=== PATIENT | female | born 1975 | race Caucasian/White ===

== ENCOUNTER → 2025-03-06 14:17 | Outpatient (BNVA) | payer MEDICARE, SELFPAY | PROVIDERS: Referring Provider Preventive Medicine Occupational Medicine; Visit Provider Nurse Practitioner Adult Health | DX: M54.2 Cervicalgia (principal); G89.29 Other chronic pain; M79.601 Pain in right arm; M79.602 Pain in left arm | CPT/HCPCS: 95886; 95911; 95887 ==

== ENCOUNTER 2025-05-29 13:49 | Outpatient (CLI) | payer MEDICARE, SELFPAY ==
[2025-05-29 14:40] VITALS: BP 134/75; PULSE 86; RESP 20; TEMP 37; O2SAT 98
[2025-05-29 15:09] VITALS: PULSE 94; O2SAT 96
[2025-05-29 15:10] VITALS: PULSE 98; O2SAT 97
[2025-05-29 15:20] VITALS: PULSE 94; O2SAT 97
--- NOTE | 2025-05-29 15:23 | PDOC.PAIN_ITS ---
Date of service: 05/29/25 Time of Service: 15:24 US Guided Injections Type of Ultrasound Guided Injection: Lower back Bilateral Paraspinous muscle and Middle back Bilateral Paraspinous muscle Trigger Point Injection Pre-Procedural Evaluation Tenderness to palpation to the paraspinous muscles of the mid and lower back Referral Patient has been referred to the [facility] for Bilateral Paraspinous muscle Lower back and Bilateral Paraspinous muscle Middle back Trigger Point Injection for a chief complaint of Pain to the muscles of the mid and low back Pre-Procedural Pain Score Pre-procedural pain score: 7/10 Reason for Exam Pain in the mid and low back Patient Interview Patient was interviewed and medical record reviewed: Yes There were no contraindications to performing an US guided procedure. Risks,expected side effects, potential benefits were reviewed. The patient consent form was signed and witnessed. Standard time out procedure was performed. Procedure Description No sedation given for procedure Patient was placed in the prone position and the following Pulse Ox applied. Pre-Procedure ultrasound scanning performed using a Linear 9 MHz probe Local Anesthesia A 21 G 3.5 Pajunk ultrasound needle was placed under live US guidance using an in-plane approach to the target area. After visualization of the needle tip at the target area Depo-Medrol 40mg per cc were used. Total of Injectate/Medication Note: 1 cc of Depomedrol Negative aspiration for blood. [place] were removed without difficulty. Ultrasound images were captured and stored. Patient Mental Status Patient was alert during procedure Vital Signs Vital signs were stable throughout the procedure and recorded by nursing. Follow Up/Discharge Follow up plans and appointments were discussed with patient. Post procedure instruction was given as documented in nursing documentation. Discharge criteria met and patient discharged from [facility]: Yes Post Procedure Pain Post Procedure Pain: 6/10 Patient tolerated procedure well Procedure Outcome: Successful Non US Guided Injections Procedure Description Patient was placed in the prone position Post Procedure Pain Post Procedure Pain: 6/10 Coding Conscious Sedation used for procedure: No CPT Codes: TPI Single/Multi 1 or 2 Muscles *BILATERAL* - [id number] ([id number]) Additional Codes: Visualization of the needle tip - Ultrasound images captured/stored: Yes ([id number]) Date of Service (76133) Date of service: 05/29/25 Diagnoses: muscle pain
[2025-05-29] MEDS: Normal Saline 20 ML VIAL 5 ML IM (15:34)
[2025-05-29] MEDS: Nerve Block Tray 1 EACH MC (15:34)
[2025-05-29] MEDS: methylPREDNISolone ACETATE 40 MG/ML VIAL IJ (15:34)
== END 2025-05-29 13:50 | disposition home or self-care (01) ==
PROVIDERS: PCP Family Medicine; Visit Provider Preventive Medicine Occupational Medicine
DX: M54.50 Low back pain, unspecified (principal); M54.6 Pain in thoracic spine; M79.18 Myalgia, other site
CPT/HCPCS: 20552; 20553; 76942; J1010